=== PATIENT | male | born 1940 | race Caucasian/White ===

== ENCOUNTER 2017-02-26 09:37 | Outpatient (CLI) | payer MEDICARE, BC ==
[2017-02-26 11:12] LABS: ALT (SGPT) 21 U/L (0-55); AST (SGOT) 20 U/L (5-34); Albumin 4.1 g/dL (3.4-4.8); Alkaline Phosphatase 73 U/L (40-150); Anion Gap 14 mmol/L (10-20); BUN (Urea Nitrogen) 20 mg/dL (8.4-25.7); Bilirubin, Total 0.6 mg/dL (0.2-1.2); Calc. Creatinine Clearance 0 mL/min (70-130); Calcium 8.9 mg/dL (7.8-10.44); Carbon Dioxide 25 mmol/L (23-31); Cardiac Risk 4.4 (Less than 4.5); Chloride 107 mmol/L (98-107); Cholesterol 172 mg/dL (< 200 Desired); Estimated GFR-MDRD 67; Globulin 2.8 g/dL (2.4-3.5); Glucose 102 mg/dL (83-110); HDL Cholesterol 39 mg/dL (>60 Neg Risk); LDL Cholesterol, Calculated 114 mg/dL; Protein, Total 6.9 g/dL (5.8-8.1); Sodium 142 mmol/L (136-145); Triglycerides 96 mg/dL (Less than 150)
[2017-02-26 13:18] LABS: #Eosinphils 0.2 thou/uL (0.0-0.7); #Lymphocytes 2.1 thou/uL (1.20-3.40); #Monocytes 0.5 thou/uL (0.11-0.59); %Basophils 0.6 % (0.0-1.0); %Eosinophils 2.8 % (0.0-10.0); %Lymphocytes 36.3 % (21.0-51.0); %Monocytes 8.9 % (0.0-10.0); %Neutrophils 51.4 % (42.0-75.0); Hemoglobin 15.6 g/dL (14.0-18.0); Mean Corpuscular HGB CONC 35.6 g/dL (32.0-36.0); Mean Corpuscular Hemoglobin 34.6 pg (27.0-31.0); Mean Corpuscular Volume 97.2 fl (80.0-94.0); Mean Platelet Volume 7.6 fL (7.4-10.4); PLT Morphology Comment Appears Decreased; Platelet Count 112 thou/uL (130-400); RBC Distribution Width 11.8 % (11.5-14.5); Red Blood Cell (RBC) Count 4.52 mill/uL (4.70-6.10); White Blood Cell (WBC) Count 5.8 thou/uL (4.8-10.8)
== END 2017-02-26 09:38 | disposition home or self-care (01) ==
LOC: HPCALD 09:37
PROVIDERS: ATTEND Family Medicine
DX: Z12.5 Encounter for screening for malignant neoplasm of prostate (principal); I10 Essential (primary) hypertension; E78.5 Hyperlipidemia, unspecified
CPT/HCPCS: 36415; 80053; 80061; 85025; G0103

== ENCOUNTER 2017-03-02 08:14 | Outpatient (CLI) | payer MEDICARE, BC ==
--- NOTE | 2017-03-02 12:52 | MRI ---
LUMBAR SPINE MRI WITHOUT CONTRAST 03/02/2017 HISTORY: Bilateral lumbar radiculopathy. COMPARISON: 04/06/2014 TECHNIQUE: Multiplanar, multisequence MR imaging of the lumbar spine provided without contrast. FINDINGS: STIR imaging demonstrates increased signal intensity involving the left aspect of the L4 vertebral b neeraj and the L5 vertebral body, most prominently involving the inferior endplate of L4 and the superi or endplate of L5. The STIR imaging appears grossly unremarkable otherwise. These findings suggest degenerative edematous endplate change at the L4-L5 level. Assuming five lumbar type vertebral bodies, the conus medullaris terminates at the L1-L2 level. T12-L1: There is disk space narrowing and disk desiccation with bilateral facet hypertrophy. No si gnificant central canal or neural foraminal stenosis. L1-L2: Bilateral facet hypertrophy and disk desiccation noted. No significant central canal or rosy ral foraminal stenosis. Prominent right-sided anterior osteophyte formation is noted. L2-L3: Prominent bilateral facet hypertrophy. There is a foraminal and post foraminal disk protrusion on the left. There is disk space narrowing and disk desiccation. There is stable mild central canal stenosis. There is mild bilateral neural foraminal stenosis, left greater than right, stable. L3-L4: There is disk space narrowing, disk desiccation, and minimal disk bulge. There is prominent bilateral facet hypertrophy with a mild to moderate degree of central canal stenosis, slightly wors ened. There is mild bilateral neural foraminal stenosis, stable. L4-L5: There is prominent bilateral facet hypertrophy. There is disk space narrowing, disk desicca tion, and disk bulge, causing moderate to severe central canal stenosis, similar when compared to th e prior exam. Severe bilateral neural foraminal stenosis is noted, left greater than right, similar when compared to the prior exam. The patient appears status post laminectomy at the L4-L5 level. L5-S1: Disk space narrowing, disk desiccation, and mild disk bulge with mild central canal stenosis , stable. Prominent bilateral facet hypertrophy. Moderate bilateral neural foraminal stenosis is n oted, left greater than right, similar when compared to the prior examination. The imaged retroperitoneal structures appear grossly unremarkable. 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 The degree of degenerative change and associated central canal/rosy ral foraminal stenosis has worsened slightly since the 04/06/2014 examination, as detailed above. POS: KWASI
== END 2017-03-02 08:15 | disposition home or self-care (01) ==
LOC: BURMRI 08:14
PROVIDERS: ATTEND Family Medicine
DX: M54.16 Radiculopathy, lumbar region (principal); M47.26 Other spondylosis with radiculopathy, lumbar region
CPT/HCPCS: 72148

== ENCOUNTER 2017-09-25 08:48 | Outpatient (CLI) | payer MEDICARE, BC ==
--- NOTE | 2017-09-25 15:24 | CT ---
CT ABDOMEN AND PELVIS WITH AND WITHOUT CONTRAST WITH RECONSTRUCTIONS OF ONE OR MORE AREAS: 09/25/2017 COMPARISON: Prior CT dated 12/25/2015 done at [facility]. FINDINGS: ABDOMEN: The lung bases are clear, except for some dependent atelectasis. The liver, spleen, gallb ladder, pancreas, and abdominal aorta show no acute findings. A slightly enlarged left paraaortic n ode, just below the level of the left kidney (1.5 cm wide) was present on the prior scan and has not changed. The kidneys themselves show no mass, hydronephrosis, or abnormal enhancement. There is some mild pe rinephric stranding bilaterally, but this is no different than it was on the prior scan. There is no dilation of bowel or bowel wall thickening. Diverticulosis is present, primarily in the sigmoid region. No free air or free fluid is seen. PELVIS: CT of the pelvis shows marked enlargement of the prostate, which measured 6.5 cm in transve rse diameter and 5.1 cm in AP diameter. This is comparable to the size seen in 2016. I would note, however, on the sagittal delayed views, there seems to be a slight amount of irregularity in the fl oor of the bladder, posteriorly, where the prostate contacts it. Given this finding, plus mention o f hematuria, cystoscopy might be prudent to visually examine this area. The bladder wall in this lo cation is slightly thicker, though, overall, the bladder wall is not exceptionally thick. No pelvic masses, fluid collections, or inflammatory changes are seen. A fat-filled left inguinal hernia is noted. There are extensive degenerative changes throughout the patient's lumbar spine. IMPRESSION: 1. Extremely large prostate with some slight irregularity in the floor of the bladder posteriorly, seen best on the delayed sagittal view. Cystoscopy might be considered to clear this area of any pa thology. 2. No evidence of significant renal pathology to explain hematuria. 3. Diverticulosis, primarily sigmoid. 4. Other findings as listed above. POS: TREVA
== END 2017-09-25 08:49 | disposition home or self-care (01) ==
LOC: BURCT 08:48
PROVIDERS: ATTEND Urology
DX: R31.0 Gross hematuria (principal); N40.1 Benign prostatic hyperplasia with lower urinary tract symptoms; K57.30 Diverticulosis of large intestine without perforation or abscess without bleeding
CPT/HCPCS: 74178

== ENCOUNTER 2019-04-14 12:01 | Outpatient (CLI) | payer MEDICARE, BC ==
--- NOTE | 2019-04-14 20:19 | ULT ---
TESTICULAR ULTRASOUND 04/14/19 Ultrasonography of the scrotum was performed for evaluation of scrotal swelling. The testicles are atrophic but otherwise appear normal. There is no sign of testicular mass. Blood fl ow is present in each one. The right testicle measures 3.6 x 2.1 x 2.6 cm and the left measures 3.2 x 2.4 x 2.8 cm. Right epididymis appears normal. The left epididymis is definitely enlarged, measuring up to 2.4 cm a round the head. It is inhomogeneous in appearance and has abundant blood flow in it. There is a moder ate amount of free fluid present around both the left epididymis and on the right side as well. IMPRESSION: Presumed left epididymitis. Follow-up to complete resolution advised. POS: HOME
== END 2019-04-14 12:02 | disposition home or self-care (01) ==
LOC: BURULT 12:01
PROVIDERS: ATTEND Family Medicine
DX: N50.89 Other specified disorders of the male genital organs (principal); N45.1 Epididymitis
CPT/HCPCS: 76870; 93976

== ENCOUNTER 2020-08-09 14:22 | Outpatient (CLI) | payer MEDICARE, BC ==
[2020-08-09 14:52] LABS: #Eosinphils 0.1 thou/uL (0.0-0.7); #Lymphocytes 1.8 thou/uL (1.20-3.40); #Monocytes 0.4 thou/uL (0.11-0.59); #Neutrophils 3.6 thou/uL (1.40-6.50); %Basophils 0.4 % (0.0-1.0); %Eosinophils 2.4 % (0.0-10.0); %Monocytes 6.6 % (0.0-10.0); %Neutrophils 60.6 % (42.0-75.0); Hemoglobin 14.7 g/dL (14.0-18.0); Mean Corpuscular HGB CONC 31.4 g/dL (32.0-36.0); Mean Corpuscular Hemoglobin 30.9 pg (27.0-31.0); Mean Corpuscular Volume 98.3 fL (78.0-98.0); Mean Platelet Volume 6.4 fL (7.4-10.4); Platelet Count 110 thou/uL (130-400); RBC Distribution Width 14.4 % (11.5-14.5); Red Blood Cell (RBC) Count 4.75 mill/uL (4.70-6.10)
--- NOTE | 2020-08-09 20:39 | RAD ---
CHEST TWO VIEWS: 08/09/20 Comparison is made with the 04/09/19 studies. There is a small left pleural effusion which is a new finding. Some left lower lobe streaking suggest that there is an infiltrate as well. The right lung is clear. An equivocal density over the right lo wer chest is most likely either lung markings overlapping one of the ribs or perhaps a nipple shadow. It should be looked at on follow-up chest x-rays. The upper lobe vessels do not appear congested, ev en though the heart is mildly enlarged. There has been a prior CABG. The overall heart size is stabl e over time. IMPRESSION: 1. Small left pleural effusion and probably a left basilar infiltrate. Cannot rule out infection as an etiology. 2. Mild cardiomegaly, unchanged. POS: HOME
[2020-08-09 22:13] LABS: Free T4 (Free Thyroxine) 1.01 ng/dL (0.70-1.48)
== END 2020-08-09 14:23 | disposition home or self-care (01) ==
LOC: BURRAD 14:22
PROVIDERS: ATTEND Internal Medicine Cardiovascular Disease
DX: I25.10 Atherosclerotic heart disease of native coronary artery without angina pectoris (principal); R06.02 Shortness of breath; R53.83 Other fatigue; J90 Pleural effusion, not elsewhere classified; I51.7 Cardiomegaly; R91.8 Other nonspecific abnormal finding of lung field
CPT/HCPCS: 36415; 71046; 83880; 84439; 84443; 85025

== ENCOUNTER 2021-01-15 14:11 | Emergency (ER) | payer MEDICARE, BC ==
[2021-01-15] MEDS ORDERED: Sterile Water 100 ML ONE (15:35)
[2021-01-15] MEDS ORDERED: CEFAZOLIN 1 GM VIAL ONE (15:35)
[2021-01-15] MEDS ORDERED: Boostrix 0.5 ML (Tdap) VIAL ONE (15:35)
[2021-01-15] MEDS ORDERED: Bacitracin 1 PK ONE (15:37)
--- NOTE | 2021-01-15 18:52 | RAD ---
LEFT THIRD FINGER: Date: 01-15-2021 FINDINGS: A fracture of the terminal tuft of the distal phalanx is present. Severe arthritic changes are presen t in the PIP joint and to a lesser extent, the first MCP and DIP joint. There are no dislocations. IMPRESSION: 1. Fracture of the terminal tuft. 2. Osteoarthritis. POS: HOME
== END 2021-01-15 16:40 | disposition home or self-care (01) ==
LOC: BURERS 14:11
DX: S62.663A Nondisplaced fracture of distal phalanx of left middle finger, initial encounter for closed fracture (principal); W23.0XXA Caught, crushed, jammed, or pinched between moving objects, initial encounter; Z79.82 Long term (current) use of aspirin; I10 Essential (primary) hypertension; I25.10 Atherosclerotic heart disease of native coronary artery without angina pectoris; M10.9 Gout, unspecified
CPT/HCPCS: 90471; 90715; 96365; J0690